=== PATIENT | female | born 1935 | race Caucasian/White ===

== ENCOUNTER 2016-08-20 15:46 | Emergency (ER) | payer OTHER, MEDICARE ==
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
[2016-10-01] MEDS ORDERED: COREG3.125 MG PO (12:36)
[2016-10-01] MEDS ORDERED: THERA1 EACH PO (12:37)
[2016-10-01] MEDS ORDERED: DIAZEPAM5 MG PO (12:37)
[2016-10-01] MEDS ORDERED: SEROQUEL25 MG PO (12:37)
[2016-10-01] MEDS ORDERED: VANTIN100 MG PO (12:38)
[2016-10-01] MEDS ORDERED: TYLENOL DPS325 MG PO (12:38)
== END 2016-08-20 17:00 | disposition home or self-care (01) ==
LOC: ER 15:46
DX: R07.89 Other chest pain (principal); F41.9 Anxiety disorder, unspecified; Z88.0 Allergy status to penicillin; Z88.1 Allergy status to other antibiotic agents; Z79.899 Other long term (current) drug therapy